=== PATIENT | female | born 1945 | race Caucasian/White ===

== ENCOUNTER 2016-10-20 15:38 | Outpatient (CLI) | payer MEDICARE, MEDICAID ==
--- NOTE | 2016-10-20 18:29 | RAD ---
EXAM: ABDOMEN ONE VIEW 10/20/16 HISTORY: Right lower quadrant pain. COMPARISON: None. FINDINGS: Limited evaluation of the bowel gas. There is scattered fecal material in a nondistended, nondilated colon. No obvious small bowel distention. No suspicious densities in the abdomen or pelvis. Cholecy stectomy clips are suspected in the right upper quadrant. There is atherosclerosis of the aorta. No osseous abnormalities. IMPRESSION: Nonspecific bowel gas pattern. Consider CT if clinically warranted. POS: PADMINI
--- NOTE | 2016-10-20 18:30 | RAD ---
EXAM: RIGHT HIP TWO VIEWS 10/20/16 HISTORY: Pain. COMPARISON: None. FINDINGS: Joint space height is preserved. Contour of the femoral head is maintained. No fractures or malalign ment. IMPRESSION: Unremarkable right hip two views. POS: JACOB
== END 2016-10-20 15:39 | disposition home or self-care (01) ==
LOC: MADRAD 15:38
PROVIDERS: ATTEND Family Medicine
DX: M25.551 Pain in right hip (principal); R10.31 Right lower quadrant pain
CPT/HCPCS: 74000

== ENCOUNTER 2019-02-27 13:16 | Emergency (ER) | payer MEDICARE, MEDICAID ==
[2019-02-27] MEDS ORDERED: Lidocaine 1% w/Epinephrine 1:100K 20 ML VIAL ONE (13:18)
[2019-02-27] MEDS ORDERED: Adacel (T-DAP) 0.5 ML SYRINGE ONE (13:23)
== END 2019-02-27 14:35 | disposition home or self-care (01) ==
LOC: MADERS 13:16
DX: S01.81XA Laceration without foreign body of other part of head, initial encounter (principal); Z23 Encounter for immunization; W18.30XA Fall on same level, unspecified, initial encounter
CPT/HCPCS: 90715

== ENCOUNTER 2021-06-20 10:05 | Emergency (ER) | payer MEDICARE, MEDICAID ==
[2021-06-20] MEDS ORDERED: Lidocaine 5% Patch TD SCH (10:30)
[2021-06-20] MEDS ORDERED: Transdermal Patch Removal TOP SCH (22:30)
== END 2021-06-20 10:47 | disposition home or self-care (01) ==
LOC: MADERS 10:05
DX: M25.552 Pain in left hip (principal); I10 Essential (primary) hypertension; K21.9 Gastro-esophageal reflux disease without esophagitis; D64.9 Anemia, unspecified; Z87.891 Personal history of nicotine dependence
CPT/HCPCS: 99283

== ENCOUNTER 2023-12-12 22:04 | Inpatient (IN) | payer OTHER, MEDICARE ==
[2023-12-12] MEDS ORDERED: Bisacodyl 10 MG SUPP PR PRN (23:24)
[2023-12-12] MEDS ORDERED: Bisacodyl 5 MG TAB PO PRN (23:24)
[2023-12-12] MEDS ORDERED: Senokot S 8.6-50 MG TAB PO PRN (23:24)
[2023-12-13 01:36] VITALS: BMI 28.0
[2023-12-13 07:50] VITALS: BMI 28.0
[2023-12-13] MEDS: Carvedilol 6.25 MG TAB PO SCH (08:58)
[2023-12-13] MEDS: Acetaminophen ER (8hr) 650 MG TAB PO SCH (08:58)
[2023-12-13] MEDS: Lidocaine 4% Patch TD SCH (08:59)
[2023-12-13] MEDS: Lisinopril 20 MG TAB PO SCH (08:59)
[2023-12-13] MEDS: Amiodarone 200 MG TAB PO SCH (08:59)
[2023-12-13] MEDS: Pantoprazole DR 40 MG TAB PO SCH (08:59)
[2023-12-13] MEDS: Atorvastatin Calcium 10 MG TAB PO SCH (08:59)
[2023-12-13] MEDS: DULoxetine 30 MG CAP PO SCH (08:59)
[2023-12-13] MEDS: hydrALAZINE 25 MG TAB PO SCH (08:59)
[2023-12-13] MEDS: Apixaban 5 MG TAB PO SCH (08:59)
[2023-12-14] MEDS: Transdermal Patch Removal TOP SCH (02:09)
[2023-12-14] MEDS: Loratadine 10 MG TAB PO PRN (09:11)
[2023-12-17 07:26] VITALS: TEMP 97.5
[2023-12-17 08:34] VITALS: BP 135/77
== END 2023-12-17 16:38 | disposition left against medical advice (07) | DRG 948 ==
LOC: MADMS 12-13 01:05
PROVIDERS: ADMIT Family Medicine; ATTEND Family Medicine
DX: R53.81 Other malaise (principal); M48.02 Spinal stenosis, cervical region; M48.061 Spinal stenosis, lumbar region without neurogenic claudication; R26.0 Ataxic gait; I48.91 Unspecified atrial fibrillation; Z79.01 Long term (current) use of anticoagulants; R29.6 Repeated falls; I10 Essential (primary) hypertension; E78.5 Hyperlipidemia, unspecified; D64.9 Anemia, unspecified; K21.9 Gastro-esophageal reflux disease without esophagitis; Z79.899 Other long term (current) drug therapy; Z98.890 Other specified postprocedural states; Z87.891 Personal history of nicotine dependence

== ENCOUNTER 2024-03-27 14:18 | Emergency (ER) | payer MEDICARE, OTHER ==
[~2024-03-27 14:18] MED LIST: Iopamidol 370 76% 100 ML VIAL ONE
[2024-03-27 15:57] LABS: ALT (SGPT) 42 U/L (8-55); AST (SGOT) 51 U/L (5-34); Albumin 3.9 g/dL (3.4-4.8); Alkaline Phosphatase 302 U/L (40-110); Anion Gap 17 mmol/L (10-20); BUN (Urea Nitrogen) 19 mg/dL (9.8-20.1); CK (CPK) 113 U/L (29-168); Calc. Creatinine Clearance 0 mL/min (70-130); Calcium 10.3 mg/dL (7.8-10.44); Carbon Dioxide 24 mmol/L (23-31); Chloride 100 mmol/L (98-107); Estimated GFR 42; Globulin 3.6 g/dL (2.4-3.5); Glucose 159 mg/dL (83-110); Lipase 159 U/L (8-78); Magnesium 2.3 mg/dL (1.6-2.6); Potassium 4.3 mmol/L (3.5-5.1); Protein, Total 7.5 g/dL (5.8-8.1); Sodium 137 mmol/L (136-145)
[2024-03-27 16:03] LABS: Band 21 % (5-11); Eosinophils 2 % (0-10); Hematocrit 50.9 % (36.0-47.0); Hemoglobin 15.3 g/dL (12.0-16.0); Hypochromia SLIGHT = 6-15 cells (100X) (0-5/hpf); Lymphocytes 9 % (21-51); MDiff Complete? YES; Mean Corpuscular Hemoglobin 27.7 pg (27.0-31.0); Mean Corpuscular Volume 92.4 fl (78.0-98.0); Mean Platelet Volume 7.4 fL (7.4-10.4); Monocytes 3 % (0-10); Neutrophil 62 % (42-75); Platelet Adequacy Comment Appears Adequate; Platelet Count 312 10x3/uL (130-400); RBC Distribution Width 13.6 % (11.5-14.5); Red Blood Cell (RBC) Count 5.51 mill/uL (4.20-5.40); White Blood Cell (WBC) Count 13.4 10x3/uL (4.8-10.8)
[2024-03-27 17:00] LABS: Bilirubin Negative (Negative); Blood, Urine Negative (Negative); Clarity Slightly Cloudy (Clear); Glucose, Urine (Dipstick) Negative (Negative); Ketone, Urine Negative (Negative); Leukocyte Large (Negative); Nitrite Negative (Negative); Protein, Urine (Dipstick) 100 mg/dL (Neg-Trace); Urobilinogen 0.2 mg/dL (Less than 2); pH, Urine 6.5 (5.0-9.0)
[2024-03-27 17:01] LABS: Bacteria/HPF 4+ HPF (None Seen); CAUTI Indications for Culture Alt mental st,lethar; RBC/HPF 0-3 HPF (0-3); Squamous Epithelial 0-3 HPF (0-3); Urine Culture Reflex Yes Yes; WBC/HPF Greater Than 50 HPF (0-3)
[2024-03-27] MEDS ORDERED: Sodium Chloride 0.9% 2,000 ML ONE (17:18)
[2024-03-27] MEDS ORDERED: Pantoprazole 40 MG VIAL ONE (17:18)
[2024-03-27] MEDS ORDERED: Sodium Chloride 0.9% 100 ML ONE (17:26)
[2024-03-27] MEDS ORDERED: Piperacillin/Tazobactam 4.5 GM VIAL ONE (17:26)
[2024-03-28 18:22] LABS: Campy jejuni + coli by PCR Negative (Negative); STEC Shiga Toxin 1+2 Negative (Negative); Salmonella spp. by PCR Negative (Negative); Shigella spp + EIEC by PCR Negative (Negative)
== END 2024-03-27 19:02 | disposition short-term general hospital (02) ==
LOC: MADERS 14:18
DX: K52.9 Noninfective gastroenteritis and colitis, unspecified (principal); F32.A Depression, unspecified; K29.70 Gastritis, unspecified, without bleeding; T68.XXXA Hypothermia, initial encounter; A41.9 Sepsis, unspecified organism; N39.0 Urinary tract infection, site not specified; I10 Essential (primary) hypertension; Z87.891 Personal history of nicotine dependence
CPT/HCPCS: 51702; 74177; 80053; 81001; 82550; 83605; 83690; 83735; 85025; 87040; 87077; 87086; 87186; 87324; 87449; 87505; 96361; 96365; 96375; 99285; J2470; J2543; J7030; Q9967; 36415